=== PATIENT | male | born 1945 | race Caucasian/White ===

== ENCOUNTER → 2019-04-27 07:59 | Outpatient (CLI) | payer MEDICARE, OTHER, SELFPAY ==
[2019-04-27 08:53] LABS: Add Manual Diff / Slide Review NO; Basophils Absolute Auto 0 /uL (0-100); Basophils Percent Auto 0.4 % (0-2); Eosinophils Absolute Auto 500 /uL (0-450); Hematocrit 42.6 % (41-53); Hemoglobin 14.9 g/dL (13.5-17.5); Lymphocytes Absolute Auto 1500 /uL (1100-4500); Lymphocytes Percent Auto 26.2 % (25-40); Mean Corpuscular Hemoglobin 29.6 PG (26-34); Mean Corpuscular Volume 84.7 fL (80-100); Monocytes Absolute Auto 600 /uL (0-900); Neutrophils Absolute Auto 3200 /uL (1500-7000); Neutrophils Percent Auto 55.4 % (50-75); Platelet Count 239 X10^3/uL (150-400); Red Blood Cell Count 5.03 X10^6/uL (4.5-5.9); White Blood Cell Count 5.8 X10^3/uL (4.5-11.0)
[2019-04-27 09:26] LABS: Alanine Aminotransferase 21 IU/L (<50); Albumin 4.2 g/dL (3.5-5.0); Albumin Globulin Ratio 1.6 (1.0-2.8); Alkaline Phosphatase 63 U/L (38-126); Aspartate Aminotransferase 36 IU/L (17-59); BUN Creatinine Ratio 23.6 (6-22); Bilirubin Total 0.7 mg/dL (0.2-1.3); Blood Urea Nitrogen 26 mg/dL (9-20); Calcium 9.9 mg/dL (8.4-10.2); Carbon Dioxide 28 mmol/L (22-32); Chloride 106 mmol/L (98-107); Cholesterol 198 mg/dL (140-199); Estimated Glomerular Filt Rate > 60.0 mL/min (>60); Globulin 2.7 g/dL (1.7-4.1); Glucose 94 mg/dL (80-110); HDL Cholesterol 53 mg/dL (40-60); HEMOLYSIS < 15 (0-50); LDL Cholesterol Calculated 129 mg/dL (<100); Potassium 4.5 mmol/L (3.4-5.1); Sodium 142 mmol/L (137-145); Total Protein 6.9 g/dL (6.3-8.2); Triglycerides 79 mg/dL (35-150)
[2019-04-27 09:42] LABS: Vitamin D 25 Hydroxy (D3) 29.5 ng/mL (30.0-100.0)
[2019-04-27 09:53] LABS: TSH w/ Reflex to FT4 3.92 uIU/mL (0.47-4.68)
[2019-04-27 09:54] LABS: Prostate Specific Antigen 7.64 ng/mL (0.10-4.00)
== END ==
PROVIDERS: PCP Family Medicine; Visit Provider Family Medicine
DX: Z13.220 Encounter for screening for lipoid disorders (principal); E03.9 Hypothyroidism, unspecified; E55.9 Vitamin D deficiency, unspecified; I10 Essential (primary) hypertension; N40.1 Benign prostatic hyperplasia with lower urinary tract symptoms
CPT/HCPCS: 36415; 80053; 80061; 82306; 84153; 84443; 85025

== ENCOUNTER → 2019-10-25 07:07 | Outpatient (CLI) | payer MEDICARE, OTHER, SELFPAY ==
[2019-10-25 08:18] LABS: Add Manual Diff / Slide Review NO; Basophils Absolute Auto 0 /uL (0-100); Basophils Percent Auto 0.6 % (0-2); Eosinophils Absolute Auto 500 /uL (0-450); Eosinophils Percent Auto 8.2 % (2-4); Hematocrit 41.9 % (41-53); Hemoglobin 14.7 g/dL (13.5-17.5); Lymphocytes Absolute Auto 1400 /uL (1100-4500); Lymphocytes Percent Auto 23.3 % (25-40); Mean Corpuscular Hemoglobin 29.5 PG (26-34); Mean Corpuscular Volume 84.3 fL (80-100); Monocytes Absolute Auto 600 /uL (0-900); Monocytes Percent Auto 9.4 % (3-14); Neutrophils Absolute Auto 3500 /uL (1500-7000); Neutrophils Percent Auto 58.5 % (50-75); Platelet Count 218 X10^3/uL (150-400); Red Blood Cell Count 4.98 X10^6/uL (4.5-5.9); Red Cell Distribution Width 13.9 % (11.6-14.8); White Blood Cell Count 6.1 X10^3/uL (4.5-11.0)
[2019-10-25 08:35] LABS: Alanine Aminotransferase 20 IU/L (<50); Albumin 4.3 g/dL (3.5-5.0); Albumin Globulin Ratio 1.3 (1.0-2.8); Alkaline Phosphatase 62 U/L (38-126); Aspartate Aminotransferase 38 IU/L (17-59); BUN Creatinine Ratio 19.8 (6-22); Bilirubin Total 0.6 mg/dL (0.2-1.3); Blood Urea Nitrogen 18 mg/dL (9-20); Calcium 9.5 mg/dL (8.4-10.2); Carbon Dioxide 25 mmol/L (22-32); Chloride 106 mmol/L (98-107); Cholesterol 170 mg/dL (140-199); Estimated Glomerular Filt Rate > 60.0 mL/min (>60); Globulin 3.2 g/dL (1.7-4.1); Glucose 93 mg/dL (80-110); HDL Cholesterol 50 mg/dL (40-60); HEMOLYSIS < 15 (0-50); LDL Cholesterol Calculated 99 mg/dL (<100); Potassium 4.6 mmol/L (3.4-5.1); Sodium 139 mmol/L (137-145); Total Protein 7.5 g/dL (6.3-8.2); Triglycerides 107 mg/dL (35-150)
[2019-10-25 08:45] LABS: Free T3, Triiodothyronine Free 3.57 pg/mL (2.77-5.27); Free T4, Direct Thyroxine 0.88 ng/dL (0.78-2.19)
[2019-10-25 08:46] LABS: Vitamin D 25 Hydroxy (D3) 35.1 ng/mL (30.0-100.0)
[2019-10-25 08:58] LABS: Thyroid Stimulating Hormone 5.17 uIU/mL (0.47-4.68)
[2019-10-25 09:03] LABS: Prostate Specific Antigen 6.07 ng/mL (0.10-4.00)
[2019-10-25 09:21] LABS: Vitamin B12 812 pg/mL (239-931)
== END ==
PROVIDERS: PCP Family Medicine; Referring Provider Family Medicine; Visit Provider Family Medicine
DX: E03.9 Hypothyroidism, unspecified (principal); E55.9 Vitamin D deficiency, unspecified; F32.9 Major depressive disorder, single episode, unspecified; N40.1 Benign prostatic hyperplasia with lower urinary tract symptoms; R03.0 Elevated blood-pressure reading, without diagnosis of hypertension; R41.3 Other amnesia
CPT/HCPCS: 36415; 80053; 80061; 82306; 82607; 84153; 84439; 84443; 84481; 85025

== ENCOUNTER → 2019-11-01 12:50 | Outpatient (CLI) | payer MEDICARE, OTHER, SELFPAY ==
--- NOTE | 2019-11-01 12:52 | DI.CT.S_ITS ---
PROCEDURE: CT HEAD/BRAIN WO CON INDICATIONS: memory loss/transient amnesia TECHNIQUE: Noncontrast 4.5 mm thick angled axial sections acquired from the foramen magnum to the vertex, with coronal and sagittal reformats. For radiation dose reduction, the following was used: automated exposure control, adjustment of mA and/or kV according to patient size. COMPARISON: None. FINDINGS: Image quality: Excellent. CSF spaces: Basal cisterns are patent. No extra-axial fluid collections. The ventricles are symmetric in size and shape. Brain: No intracranial bleeds or masses. There is cerebral volume loss for age, with resultant ventricular and sulcal prominence. There are periventricular and deep white matter chronic small vessel ischemic changes. Skull and face: Calvarium and visualized facial bones appear intact, without suspicious lesions. Sinuses: Visualized sinuses and mastoids are clear. IMPRESSION: No acute intracranial disease process. Dictated by: Codie Pollack MD, PhD on 11/01/2019 at 13:37 Approved by: Codie Pollack MD, PhD on 11/01/2019 at 13:57
== END ==
PROVIDERS: PCP Family Medicine; Referring Provider Family Medicine; Visit Provider Family Medicine
DX: G45.4 Transient global amnesia (principal)
CPT/HCPCS: 70450

== ENCOUNTER → 2020-03-05 15:46 | Outpatient (CLI) | payer MEDICARE, OTHER, SELFPAY ==
[2020-03-06 20:31] LABS: COVID19 Sendout Not Detected (Not Detect)
== END ==
PROVIDERS: PCP Family Medicine; Visit Provider Physician Assistant
DX: Z11.59 Encounter for screening for other viral diseases (principal)
CPT/HCPCS: 87635

== ENCOUNTER → 2020-04-07 06:49 | Outpatient (CLI) | payer MEDICARE, OTHER, SELFPAY ==
[2020-04-10 22:33] LABS: Levetiracetam Keppra 9.6 ug/mL (10.0-40.0)
== END ==
PROVIDERS: PCP Family Medicine; Referring Provider Psychiatry & Neurology Neurology; Visit Provider Psychiatry & Neurology Neurology
DX: Z51.81 Encounter for therapeutic drug level monitoring (principal)
CPT/HCPCS: 36415; 80177

== ENCOUNTER 2020-04-18 14:32 | Emergency (ER) | payer MEDICARE, OTHER, SELFPAY ==
[2020-04-18 14:37] VITALS: BP 135/71; PULSE 65; RESP 16; TEMP 36.8; O2SAT 98; BMI 29.9
[2020-04-18 15:30] LABS: Add Manual Diff / Slide Review NO; Basophils Absolute Auto 0 /uL (0-100); Basophils Percent Auto 0.3 % (0-2); Eosinophils Absolute Auto 400 /uL (0-450); Eosinophils Percent Auto 3.6 % (2-4); Hematocrit 45.8 % (41-53); Hemoglobin 15.6 g/dL (13.5-17.5); INR 0.9 (0.9-1.3); Lymphocytes Absolute Auto 1800 /uL (1100-4500); Lymphocytes Percent Auto 15.1 % (25-40); Mean Corpuscular Volume 85.4 fL (80-100); Monocytes Absolute Auto 1300 /uL (0-900); Monocytes Percent Auto 10.8 % (3-14); Neutrophils Absolute Auto 8300 /uL (1500-7000); Neutrophils Percent Auto 70.2 % (50-75); Platelet Count 237 X10^3/uL (150-400); Prothrombin Time 10.7 SECONDS (10.1-12.7); Red Blood Cell Count 5.36 X10^6/uL (4.5-5.9); Red Cell Distribution Width 13.5 % (11.6-14.8); White Blood Cell Count 11.9 X10^3/uL (4.5-11.0)
[2020-04-18 15:33] LABS: PTT Partial Thromboplastin Tim 28 SECONDS (26.4-36.2)
[2020-04-18 15:35] LABS: Alanine Aminotransferase 18 IU/L (<50); Albumin 4.4 g/dL (3.5-5.0); Albumin Globulin Ratio 1.3 (1.0-2.8); Alkaline Phosphatase 65 U/L (38-126); Aspartate Aminotransferase 29 IU/L (17-59); BUN Creatinine Ratio 18.6 (6-22); Bilirubin Total 0.6 mg/dL (0.2-1.3); Blood Urea Nitrogen 16 mg/dL (9-20); Calcium 9.7 mg/dL (8.4-10.2); Carbon Dioxide 25 mmol/L (22-32); Chloride 106 mmol/L (98-107); Estimated Glomerular Filt Rate > 60.0 mL/min (>60); Globulin 3.5 g/dL (1.7-4.1); Glucose 90 mg/dL (80-110); HEMOLYSIS 17 (0-50); Lipase 114 U/L (23-300); Potassium 4.3 mmol/L (3.4-5.1); Sodium 138 mmol/L (137-145); Total Protein 7.9 g/dL (6.3-8.2)
[2020-04-18 16:55] VITALS: BP 148/71; PULSE 69; RESP 16; O2SAT 96
--- NOTE | 2020-04-18 17:12 | DI.CT.S_ITS ---
PROCEDURE: CT ABDOMEN PELVIS W CON INDICATIONS: LLQ pain TECHNIQUE: After the administration of intravenous contrast, 5 mm thick sections acquired from the diaphragm to the symphysis. 5 mm coronal and sagittal reformats were acquired. For radiation dose reduction, the following was used: automated exposure control, adjustment of mA and/or kV according to patient size. COMPARISON: None. FINDINGS: Image quality: Excellent. ABDOMEN: Lung bases: Mild left base atelectatic change.. Heart size is normal. Very small hiatal hernia. Solid organs: Liver is normal in size and enhancement. A 1.7 cm hypervascular lesion is present in segment of the liver demonstrating indistinct margins. No other discrete liver lesions. Gallbladder is normal . Biliary system is non dilated. Pancreas enhances normally. Spleen is normal in size and enhancement. No adrenal nodules. Kidneys demonstrate normal size and enhancement, without hydronephrosis. Peritoneum and bowel: Numerous diverticula throughout the transverse, descending, and sigmoid colon. There are acute pericolonic inflammatory changes at the distal descending and proximal sigmoid colon in the left lower quadrant. No evidence of extraluminal gas. There is thickening of the lateral conal fascia and trace fluid. No drainable abscess. This segment of colon also demonstrates extensive circumferential wall thickening. The other bowel loops demonstrate normal wall thickness and caliber. Nodes and vessels: No retroperitoneal or mesenteric adenopathy by size criteria. Aorta and inferior vena cava are normal in size. Miscellaneous: No ventral hernias. PELVIS: Genitourinary: The urinary bladder wall is diffusely thickened. The prostate gland is moderately enlarged. A penile prosthesis is present. The preperitoneal bladder portion has decompressed.. Miscellaneous: No inguinal hernias or adenopathy. Bones: No suspicious bony lesions. Right hip arthroplasty changes are present. No vertebral body compression fractures. IMPRESSION: 1. Acute uncomplicated distal descending sigmoid diverticulitis. 2. There is focal wall thickening in this segment of colon. Differential diagnosis includes perforated neoplasm and colonoscopy following resolution of acute inflammation is recommended if not recently performed. 3. Left lower lung atelectatic changes, likely secondary to splinting. 4. 1.7 cm hypervascular liver lesion most likely flash fill hemangioma. Further evaluation with CT or MRI of the liver is recommended. 5. Diffusely thickened urinary bladder wall likely from chronic outlet obstruction due to prostatomegaly. Cystitis could also be present. Correlate with UA. Dictated by: Shayy Yin M.D. on 04/18/2020 at 17:45 Approved by: Shayy Yin M.D. on 04/18/2020 at 17:54
[2020-04-18 17:20] LABS: Bacteria Urine None Seen
[2020-04-18 17:38] LABS: Culture Indicated Urine Cult Not Indicated; RBC Urine 0-1/HPF (0-5/HPF); Squamous Epithelial Cell Urine 0-1 /HPF (0-5/HPF); WBC Urine 0-1/HPF (0-5/HPF)
[2020-04-18 18:00] VITALS: BP 160/71; PULSE 68; RESP 18; O2SAT 96
[2020-04-18] MEDS: AMOXICILLIN/CLAV 875/125 MG 1 TAB PO (18:40)
[2020-04-18] MEDS: SODIUM CHLORIDE 0.9% 1,000 ML 1000 ML IV (18:41)
[2020-04-18] MEDS: ONDANSETRON 4 MG/2 ML INJ IV (18:41)
--- NOTE | 2020-04-18 19:32 | ED.ABDPAIN ---
HPI - Abdominal Pain <JACKI Munoz - Last Filed: 04/18/20 19:39> General Chief Complaint: Abdominal Pain Stated Complaint: severe pain in left abdomen Time Seen by Provider: 04/18/20 16:47 Source: patient and family Mode of arrival: Wheelchair Limitations: no limitations History of Present Illness HPI narrative: the patient is a 74-year-old male nonsmoker with history of BPH and obstructive sleep apnea who presents with a chief complaint of left lower quadrant pain. He states that he ate well last night at [employer], then noticed that he had left lower quadrant pain Late last night or this morning. He denies any fevers muscle aches or chills. Denies any nausea or vomiting. Has not taken anything for the pain and declines anything for pain during my evaluation. He states he has had multiple soft bowel movements Today. Denies any abdominal surgical history history of diverticulitis or other GI history. the patient denies any dysuria urgency or frequency. He denies any history of kidney stones. He states it is right in his left lower quadrant does not radiate anywhere. Described as 01/13. Related Data Home Medications Medication Instructions Recorded Confirmed diphenhydramine 25 1 tab PO BEDTIME PRN 04/26/19 03/05/20 mg-acetaminophen 500 mg tablet ibuprofen 200 mg capsule 200 mg PO Q6H PRN 04/26/19 03/05/20 cholecalciferol (vitamin D3) PO 05/10/19 03/05/20 Previous Rx's Medication Instructions Recorded amoxicillin-pot clavulanate 1 tab PO Q8HR 7 Days #21 tab 04/18/20 [Augmentin] hydrocodone-acetaminophen [Paisley] 1 tab PO Q4-6H PRN #10 tab 04/18/20 ondansetron 4 mg PO Q6H PRN #20 tab 04/18/20 Allergies Allergy/AdvReac Type Severity Reaction Status Date / Time lactose [LACTOSE] Allergy Unknown Verified 04/18/20 14:39 Review of Systems <JACKI Munoz - Last Filed: 04/18/20 19:39> Review of Systems Narrative: GENERAL: Denies chills, fatigue, malaise, fever, sweats. HEENT: Denies sinus pain, ear pain, sore throat, difficulty swallowing, dizziness. RESPIRATORY: Denies dyspnea, cough, wheezing, hemoptysis, sputum. CARDIOVASCULAR: Denies chest pain, palpitations, orthopnea, edema, GASTROINTESTINAL: See HPI : Denies dysuria, frequency, incontinence, hematuria, urinary retention. MUSCULOSKELETAL: denies weakness, joint pain, or bony pain SKIN: Denies rash, skin lesions, or other NEUROLOGIC: Denies weakness, headache, numbness, change in speech, confusion, seizures, incoordination. PSYCHIATRIC: No concerning psychosocial issues. 12 point review of systems is negative except for those stated above Patient History <JACKI Munoz - Last Filed: 04/18/20 19:39> Medical History Carpal tunnel syndrome (Chronic) Dehydration (Acute) Diarrhea (Acute) Elevated TSH (Acute) Fever (Acute) Memory change (Acute) Vision disorder (Chronic) Surgical History Anesthesia (Resolved) History of right hip replacement (Resolved ~2013) History of shoulder surgery (Resolved ~2016) History of surgery (Resolved ~1999) Family History Unknown Unknown family medical history Unobtainable family history due to adoption Social History Smoking Status: Never smoker Smoking Status: Never smoker alcohol intake frequency: other Substance Use Type: does not use Exam <JACKI Munoz - Last Filed: 04/18/20 19:39> Narrative Exam Narrative: GENERAL: This is a well-nourished, well-developed patient, in no acute distress HEAD: Atraumatic. Normocephalic. No temporal or scalp tenderness. EYES: Pupils equal round and reactive. Extraocular motions intact. No scleral icterus. No injection or drainage. ENT: Nose without bleeding, purulent drainage or septal hematoma. Throat without erythema, tonsillar hypertrophy or exudate. Uvula midline. Airway patent. NECK: Trachea midline. No JVD or lymphadenopathy. Supple, nontender, no meningeal signs. CARDIOVASCULAR: Regular rate and rhythm RESPIRATORY: Clear to auscultation. Breath sounds equal bilaterally. No wheezes, rales, or rhonchi. no cough. No increased respiratory effort. No accessory muscle use. GASTROINTESTINAL: Abdomen soft, Active bowel sounds all 4 quadrants, nondistended. No hepato-splenomegaly, or palpable masses. left lower quadrant pain to palpation with guarding noted. No pain right lower quadrant or McBurney's point. EXTREMITIES: No clubbing, cyanosis, or edema. No joint tenderness, effusion, or edema noted. BACK: Nontender without deformity or crepitance. No flank tenderness. NEURO: AOx3. SKIN: No rash or erythema On visible skin Initial Vital Signs Initial Vital Signs: Vital Signs Temperature 98.3 F 04/18/20 14:37 Pulse Rate 65 04/18/20 14:37 Respiratory Rate 16 04/18/20 14:37 Blood Pressure 135/71 04/18/20 14:37 Pulse Oximetry 98 04/18/20 14:37 <Juany Aquino DO - Last Filed: 04/19/20 08:26> Initial Vital Signs Initial Vital Signs: Vital Signs Temperature 98.3 F 04/18/20 14:37 Pulse Rate 65 04/18/20 14:37 Respiratory Rate 16 04/18/20 14:37 Blood Pressure 135/71 04/18/20 14:37 Pulse Oximetry 98 04/18/20 14:37 Scores <JACKI Munoz - Last Filed: 04/18/20 19:39> GCS [place] coma scale eye opening: Spontaneous Steve coma scale verbal response: Orientated Steve coma scale motor response: Obey commands [place] coma scale total score: 15 Course <JACKI Munoz - Last Filed: 04/18/20 19:39> Orders Ordered: Discontinued Medications Amoxicillin/Clavulanate Potassium (Augmentin 875-125 Mg) 1 tab PO NOW ONE Stop: 04/18/20 18:32 Last Admin: 04/18/20 18:40 Dose: 1 tab Documented by: JOSUEINOR Sodium Chloride (Normal Saline 0.9%) 1,000 mls @ 1,000 mls/hr IV BOLUS ONE Stop: 04/18/20 19:30 Last Infusion: 04/18/20 19:32 Dose: 0 mls/hr Documented by: Admin: 04/18/20 18:41 Dose: 1,000 mls/hr Documented by: MMINOR Ondansetron HCl (Zofran) 4 mg IV NOW ONE Stop: 04/18/20 18:32 Last Admin: 04/18/20 18:41 Dose: 4 mg Documented by: MMINOR Vital Signs Vital signs: Vital Signs - 8 hr 04/18/20 14:37 04/18/20 16:55 04/18/20 18:00 Temperature 98.3 F Pulse Rate 65 69 68 Respiratory Rate 16 16 18 Blood Pressure 135/71 148/71 H 160/71 H Pulse Oximetry 98 96 96 <Juany Aquino DO - Last Filed: 04/19/20 08:26> Orders Ordered: Discontinued Medications Amoxicillin/Clavulanate Potassium (Augmentin 875-125 Mg) 1 tab PO NOW ONE Stop: 04/18/20 18:32 Last Admin: 04/18/20 18:40 Dose: 1 tab Documented by: GAUDENCIO Sodium Chloride (Normal Saline 0.9%) 1,000 mls @ 1,000 mls/hr IV BOLUS ONE Stop: 04/18/20 19:30 Last Infusion: 04/18/20 19:32 Dose: 0 mls/hr Documented by: Admin: 04/18/20 18:41 Dose: 1,000 mls/hr Documented by: GAUDENCIO Ondansetron HCl (Zofran) 4 mg IV NOW ONE Stop: 04/18/20 18:32 Last Admin: 04/18/20 18:41 Dose: 4 mg Documented by: MMINOR Vital Signs Vital signs: Vital Signs - 8 hr 04/18/20 14:37 04/18/20 16:55 04/18/20 18:00 Temperature 98.3 F Pulse Rate 65 69 68 Respiratory Rate 16 16 18 Blood Pressure 135/71 148/71 H 160/71 H Pulse Oximetry 98 96 96 MDM - Abdominal Pain <JACKI Munoz - Last Filed: 04/18/20 19:39> Differential Diagnosis Differential diagnosis: Likely abdominal pain, acute appendicitis, calculus of kidney, constipation and diverticulitis Lab Data Attestation: I reviewed the patient's lab results. Result diagrams: 04/18/20 14:55 04/18/20 14:55 Labs: Lab Results 04/18/20 04/18/20 04/18/20 Range/Units 14:55 14:55 14:55 WBC 11.9 H (4.5-11.0) X10^3/uL RBC 5.36 (4.5-5.9) X10^6/uL Hgb 15.6 (13.5-17.5) g/dL Hct 45.8 (41-53) % MCV 85.4 (80-100) fL MCH 29.0 (26-34) PG MCHC 34.0 (30-36) % RDW 13.5 (11.6-14.8) % Plt Count 237 (150-400) X10^3/uL Neut % (Auto) 70.2 (50-75) % Lymph % (Auto) 15.1 L (25-40) % [place] % (Auto) 10.8 (3-14) % Eos % (Auto) 3.6 (2-4) % Baso % (Auto) 0.3 (0-2) % Neut # (Auto) 8300 H (5795-4787) /uL Lymph # (Auto) 1800 (5188-8012) /uL [place] # (Auto) 1300 H (0-900) /uL Eos # (Auto) 400 (0-450) /uL Baso # (Auto) 0 (0-100) /uL PT 10.7 (10.1-12.7) SECONDS INR 0.9 (0.9-1.3) APTT 28 (26.4-36.2) SECONDS Sodium 138 (137-145) mmol/L Potassium 4.3 (3.4-5.1) mmol/L Chloride 106 (98-107) mmol/L Carbon Dioxide 25 (22-32) mmol/L BUN 16 (9-20) mg/dL Creatinine 0.86 (0.66-1.25) mg/dL Estimated GFR > 60.0 (>60) mL/min BUN/Creatinine Ratio 18.6 (6-22) Glucose 90 (80-110) mg/dL Calcium 9.7 (8.4-10.2) mg/dL Total Bilirubin 0.6 (0.2-1.3) mg/dL AST 29 (17-59) IU/L ALT 18 (<50) IU/L Alkaline Phosphatase 65 (38-126) U/L Total Protein 7.9 (6.3-8.2) g/dL Albumin 4.4 (3.5-5.0) g/dL Globulin 3.5 (1.7-4.1) g/dL Albumin/Globulin Ratio 1.3 (1.0-2.8) Lipase 114 (23-300) U/L Urine RBC (0-5/HPF) Urine WBC (0-5/HPF) Ur Squamous Epith Cells (0-5/HPF) Urine Bacteria (None) Ur Culture Indicated? 04/18/20 Range/Units 17:04 WBC (4.5-11.0) X10^3/uL RBC (4.5-5.9) X10^6/uL Hgb (13.5-17.5) g/dL Hct (41-53) % MCV (80-100) fL MCH (26-34) PG MCHC (30-36) % RDW (11.6-14.8) % Plt Count (150-400) X10^3/uL Neut % (Auto) (50-75) % Lymph % (Auto) (25-40) % [place] % (Auto) (3-14) % Eos % (Auto) (2-4) % Baso % (Auto) (0-2) % Neut # (Auto) (1931-0217) /uL Lymph # (Auto) (2493-5187) /uL [place] # (Auto) (0-900) /uL Eos # (Auto) (0-450) /uL Baso # (Auto) (0-100) /uL PT (10.1-12.7) SECONDS INR (0.9-1.3) APTT (26.4-36.2) SECONDS Sodium (137-145) mmol/L Potassium (3.4-5.1) mmol/L Chloride (98-107) mmol/L Carbon Dioxide (22-32) mmol/L BUN (9-20) mg/dL Creatinine (0.66-1.25) mg/dL Estimated GFR (>60) mL/min BUN/Creatinine Ratio (6-22) Glucose (80-110) mg/dL Calcium (8.4-10.2) mg/dL Total Bilirubin (0.2-1.3) mg/dL AST (17-59) IU/L ALT (<50) IU/L Alkaline Phosphatase (38-126) U/L Total Protein (6.3-8.2) g/dL Albumin (3.5-5.0) g/dL Globulin (1.7-4.1) g/dL Albumin/Globulin Ratio (1.0-2.8) Lipase (23-300) U/L Urine RBC 0-1/hpf (0-5/HPF) Urine WBC 0-1/hpf (0-5/HPF) Ur Squamous Epith Cells 0-1 /hpf (0-5/HPF) Urine Bacteria None seen (None) Ur Culture Indicated? Cult not indicated Point of care testing: Urine Dip Bedside Urine Glucose Negative Bedside Urine Bilirubin - Negative Bedside Urine Ketone - Negative Urine Specific [place] 1.025 Bedside Urine Occult Blood ++ Bedside Urine pH 6.0 Bedside Urine Protein - Negative Bedside Urine Urobilinogen - Negative Bedside Urine Nitrite - Negative Bedside Urine Leukocytes - Negative Esterase Imaging Data CT scan - abdomen/pelvis: Radiologist's Impression: [address] [place] [id number] Scan Report Signed Patient: Carlos Garza MMR#: [id number] : 4Acct:[id number] Age/Sex: 74 / MDate of Service: 04/18/20 Loc: ED Accession Number: [id number] Procedure: CT abdomen pelvis w con Ordering Provider: Lelia Valero ACQUISITIONS ANALYST- PROCEDURE: CT ABDOMEN PELVIS W CON INDICATIONS: LLQ pain TECHNIQUE: After the administration of intravenous contrast, 5 mm thick sections acquired from the diaphragm to the symphysis. 5 mm coronal and sagittal reformats were acquired. For radiation dose reduction, the following was used: automated exposure control, adjustment of mA and/or kV according to patient size. COMPARISON: None. FINDINGS: Image quality: Excellent. ABDOMEN: Lung bases: Mild left base atelectatic change.. Heart size is normal. Very small hiatal hernia. Solid organs: Liver is normal in size and enhancement. A 1.7 cm hypervascular lesion is present in segment of the liver demonstrating indistinct margins. No other discrete liver lesions. Gallbladder is normal . Biliary system is non dilated. Pancreas enhances normally. Spleen is normal in size and enhancement. No adrenal nodules. Kidneys demonstrate normal size and enhancement, without hydronephrosis. Peritoneum and bowel: Numerous diverticula throughout the transverse, descending, and sigmoid colon. There are acute pericolonic inflammatory changes at the distal descending and proximal sigmoid colon in the left lower quadrant. No evidence of extraluminal gas. There is thickening of the lateral conal fascia and trace fluid. No drainable abscess. This segment of colon also demonstrates extensive circumferential wall thickening. The other bowel loops demonstrate normal wall thickness and caliber. Nodes and vessels: No retroperitoneal or mesenteric adenopathy by size criteria. Aorta and inferior vena cava are normal in size. Miscellaneous: No ventral hernias. PELVIS: Genitourinary: The urinary bladder wall is diffusely thickened. The prostate gland is moderately enlarged. A penile prosthesis is present. The preperitoneal bladder portion has decompressed.. Miscellaneous: No inguinal hernias or adenopathy. Bones: No suspicious bony lesions. Right hip arthroplasty changes are present. No vertebral body compression fractures. IMPRESSION: 1. Acute uncomplicated distal descending sigmoid diverticulitis. 2. There is focal wall thickening in this segment of colon. Differential diagnosis includes perforated neoplasm and colonoscopy following resolution of acute inflammation is recommended if not recently performed. 3. Left lower lung atelectatic changes, likely secondary to splinting. 4. 1.7 cm hypervascular liver lesion most likely flash fill hemangioma. Further evaluation with CT or MRI of the liver is recommended. 5. Diffusely thickened urinary bladder wall likely from chronic outlet obstruction due to prostatomegaly. Cystitis could also be present. Correlate with UA. Dictated by: Shayy Yin M.D. on 04/18/2020 at 17:45 Approved by: Shayy Yin M.D. on 04/18/2020 at 17:54 [facility] Narrative Medical decision making narrative: The patient is a 74-year-old male who presents with a chief complaint of left lower quadrant pain to palpation. He has slight leukocytosis on his lab work, but otherwise is afebrile and hemodynamically stable. Does have significant pain to palpation left lower quadrant, so CT was obtained and showed diverticulitis. I discussed that radiology recommends colonoscopy after resolution of diverticulitis to make sure there is no underlying neoplasm. Also discussed hemangioma of liver encouraged follow-up. Discussed with patient and his treatment for diverticulitis to include metronidazole with a fluoroquinolone, but they would like to avoid fluoroquinolones due to black box warning of tendon damage. Thus we elected to use Augmentin 875/125 t.i.d. as per up-to-date recommendations. The patient declined pain medication in the emergency department, though he was willing to take a small prescription to ensure that he can sleep. He was also given Zofran and fluids in the emergency department. I encouraged him to his primary care provider in the next few days, and discussed at length coming back to the ER for any acute concerns such as inability keep down fluids or medications. The patient is able to tolerate p.o. fluids and I encouraged a clear liquid diet was slowly advanced. Patient and have no questions or concerns upon discharge and state understanding of return precautions as well as follow-up care. <Juany Aquino, DO - Last Filed: 04/19/20 08:26> Lab Data Labs: Lab Results 04/18/20 04/18/20 04/18/20 Range/Units 14:55 14:55 14:55 WBC 11.9 H (4.5-11.0) X10^3/uL RBC 5.36 (4.5-5.9) X10^6/uL Hgb 15.6 (13.5-17.5) g/dL Hct 45.8 (41-53) % MCV 85.4 (80-100) fL MCH 29.0 (26-34) PG MCHC 34.0 (30-36) % RDW 13.5 (11.6-14.8) % Plt Count 237 (150-400) X10^3/uL Neut % (Auto) 70.2 (50-75) % Lymph % (Auto) 15.1 L (25-40) % [place] % (Auto) 10.8 (3-14) % Eos % (Auto) 3.6 (2-4) % Baso % (Auto) 0.3 (0-2) % Neut # (Auto) 8300 H (3101-5721) /uL Lymph # (Auto) 1800 (8254-5509) /uL [place] # (Auto) 1300 H (0-900) /uL Eos # (Auto) 400 (0-450) /uL Baso # (Auto) 0 (0-100) /uL PT 10.7 (10.1-12.7) SECONDS INR 0.9 (0.9-1.3) APTT 28 (26.4-36.2) SECONDS Sodium 138 (137-145) mmol/L Potassium 4.3 (3.4-5.1) mmol/L Chloride 106 (98-107) mmol/L Carbon Dioxide 25 (22-32) mmol/L BUN 16 (9-20) mg/dL Creatinine 0.86 (0.66-1.25) mg/dL Estimated GFR > 60.0 (>60) mL/min BUN/Creatinine Ratio 18.6 (6-22) Glucose 90 (80-110) mg/dL Calcium 9.7 (8.4-10.2) mg/dL Total Bilirubin 0.6 (0.2-1.3) mg/dL AST 29 (17-59) IU/L ALT 18 (<50) IU/L Alkaline Phosphatase 65 (38-126) U/L Total Protein 7.9 (6.3-8.2) g/dL Albumin 4.4 (3.5-5.0) g/dL Globulin 3.5 (1.7-4.1) g/dL Albumin/Globulin Ratio 1.3 (1.0-2.8) Lipase 114 (23-300) U/L Urine RBC (0-5/HPF) Urine WBC (0-5/HPF) Ur Squamous Epith Cells (0-5/HPF) Urine Bacteria (None) Ur Culture Indicated? 04/18/20 Range/Units 17:04 WBC (4.5-11.0) X10^3/uL RBC (4.5-5.9) X10^6/uL Hgb (13.5-17.5) g/dL Hct (41-53) % MCV (80-100) fL MCH (26-34) PG MCHC (30-36) % RDW (11.6-14.8) % Plt Count (150-400) X10^3/uL Neut % (Auto) (50-75) % Lymph % (Auto) (25-40) % [place] % (Auto) (3-14) % Eos % (Auto) (2-4) % Baso % (Auto) (0-2) % Neut # (Auto) (9412-3078) /uL Lymph # (Auto) (5716-5349) /uL [place] # (Auto) (0-900) /uL Eos # (Auto) (0-450) /uL Baso # (Auto) (0-100) /uL PT (10.1-12.7) SECONDS INR (0.9-1.3) APTT (26.4-36.2) SECONDS Sodium (137-145) mmol/L Potassium (3.4-5.1) mmol/L Chloride (98-107) mmol/L Carbon Dioxide (22-32) mmol/L BUN (9-20) mg/dL Creatinine (0.66-1.25) mg/dL Estimated GFR (>60) mL/min BUN/Creatinine Ratio (6-22) Glucose (80-110) mg/dL Calcium (8.4-10.2) mg/dL Total Bilirubin (0.2-1.3) mg/dL AST (17-59) IU/L ALT (<50) IU/L Alkaline Phosphatase (38-126) U/L Total Protein (6.3-8.2) g/dL Albumin (3.5-5.0) g/dL Globulin (1.7-4.1) g/dL Albumin/Globulin Ratio (1.0-2.8) Lipase (23-300) U/L Urine RBC 0-1/hpf (0-5/HPF) Urine WBC 0-1/hpf (0-5/HPF) Ur Squamous Epith Cells 0-1 /hpf (0-5/HPF) Urine Bacteria None seen (None) Ur Culture Indicated? Cult not indicated Point of care testing: Urine Dip Bedside Urine Glucose Negative Bedside Urine Bilirubin - Negative Bedside Urine Ketone - Negative Urine Specific [place] 1.025 Bedside Urine Occult Blood ++ Bedside Urine pH 6.0 Bedside Urine Protein - Negative Bedside Urine Urobilinogen - Negative Bedside Urine Nitrite - Negative Bedside Urine Leukocytes - Negative Esterase Discharge Plan Departure Patient Disposition: Home Clinical Impression: Diverticulitis Discharge Date/Time: 04/18/20 19:35 Instructions: DI for Diverticulitis Activity Restrictions/Additional Instructions: thank you for trusting us with your care today. As discussed, your CT and exam are concerning for diverticulitis. I have placed you on antibiotics for this. I suggest taking with probiotic /yogurt to help prevent antibiotic associated diarrhea. I also sent in prescriptions for pain and nausea medicine. please remember to start with clear liquid diet and slowly advance. please follow-up with primary care provider the next few days. As discussed, there are also incidental findings on your CT scan, which require follow-up with primary care provider. Please come back to emergency department for any acute concerns such as those we discussed including inability keep down fluids or your medications, acute concerns etcetera I have given you a prescription of a narcotic for pain. Be aware that this can be constipating and sedating. I encouraged taking with a stool softener, pushing fluids and fiber. Do not take and drive, operate heavy machinery, etc. Do not combine it with any other sedating substances such as alcohol. Prescriptions: New hydrocodone-acetaminophen [Paisley] 5-325 mg tablet 1 tab PO Q4-6H PRN (Reason: pain) Qty: 10 RF: 0 ondansetron 4 mg tablet,disintegrating 4 mg PO Q6H PRN (Reason: nausea and vomiting) Qty: 20 RF: 0 amoxicillin-pot clavulanate [Augmentin] 875-125 mg tablet 1 tab PO Q8HR 7 Days Qty: 21 RF: 0 No Action diphenhydramine-acetaminophen [Tylenol PM Extra Strength] 25-500 mg tablet 1 tab PO BEDTIME PRNRF: 0 ibuprofen 200 mg capsule 200 mg PO Q6H PRNRF: 0 cholecalciferol (vitamin D3) PO RF: 0 Referrals: Aroldo Barraza DO [Primary Care Provider] - <Juany Aquino DO - Last Filed: 04/19/20 08:26> [facility] Attestation: I was immediately available in the department for consultation. Documentation has been reviewed. I agree with assessment and plan.
== END 2020-04-18 19:35 | disposition home or self-care (01) ==
PROVIDERS: Emergency Medicine; Emergency Provider Nurse Practitioner Family; PCP Family Medicine
DX: K57.92 Diverticulitis of intestine, part unspecified, without perforation or abscess without bleeding (principal)
CPT/HCPCS: 36415; 74177; 80053; 81003; 81015; 83690; 85025; 85610; 85730; 96361; 96374; 99284; J2405; Q9967

== ENCOUNTER → 2020-04-21 15:06 | Outpatient (CLI) | payer MEDICARE, OTHER, SELFPAY ==
[2020-04-21 16:31] LABS: Alanine Aminotransferase 15 IU/L (<50); Albumin 4.3 g/dL (3.5-5.0); Albumin Globulin Ratio 1.4 (1.0-2.8); Alkaline Phosphatase 75 U/L (38-126); Aspartate Aminotransferase 29 IU/L (17-59); BUN Creatinine Ratio 19.4 (6-22); Bilirubin Total 0.7 mg/dL (0.2-1.3); Blood Urea Nitrogen 18 mg/dL (9-20); Calcium 9.8 mg/dL (8.4-10.2); Carbon Dioxide 31 mmol/L (22-32); Chloride 99 mmol/L (98-107); Estimated Glomerular Filt Rate > 60.0 mL/min (>60); Glucose 79 mg/dL (80-110); HEMOLYSIS < 15 (0-50); Potassium 4.7 mmol/L (3.4-5.1); Sodium 136 mmol/L (137-145); Total Protein 7.3 g/dL (6.3-8.2)
[2020-04-21 17:02] LABS: Prostate Specific Antigen Scrn 9.73 ng/mL (0.1-4.0)
== END ==
PROVIDERS: PCP Family Medicine; Referring Provider Family Medicine; Visit Provider Family Medicine
DX: N40.1 Benign prostatic hyperplasia with lower urinary tract symptoms (principal); R16.0 Hepatomegaly, not elsewhere classified
CPT/HCPCS: 36415; 80053; 84153; G0103

== ENCOUNTER → 2020-04-25 09:47 | Outpatient (CLI) | payer MEDICARE, OTHER, SELFPAY ==
--- NOTE | 2020-04-25 10:08 | DI.CT.S_ITS ---
PROCEDURE: CT ABDOMEN WO/W CON INDICATIONS: liver nodule TECHNIQUE: 4 phase scanning was performed. Non-contrast 5 mm axial sections acquired from the diaphragm to the iliac crests. Following the administration of intravenous contrast, 5 mm thick arterial-phase, portal venous-phase, and 5-minute delayed phase images were acquired through the liver. 5 mm thick coronal and sagittal reformats were performed. For radiation dose reduction, the following was used: automated exposure control, adjustment of mA and/or kV according to patient size. COMPARISON: [facility], CT, CT ABDOMEN PELVIS W CON, 04/18/2020, 17:16. FINDINGS: Image quality: Excellent. Lung bases: Lung bases are clear. Heart size is normal. Liver: The precontrast liver imaging is normal, and the arterial phase imaging shows no lesion in the area of prior concern, right posterior hepatic segment. The mixed venous phase of contrast enhancement shows moderate density of portal contrast enhancement, allowing visualization of a portal vein radical emanating from the right portal vein (series 5, image 21) and curving posterolaterally to the area of focal contrast enhancement seen 04/18/20 within the right posterior hepatic segment. At this point there is a curvilinear transition to a right posterior hepatic vein peripherally with shunt flow extending cephalad to the right hepatic vein intersection with the intrahepatic IVC. Other solid organs: Gallbladder appears normal. Biliary system is non dilated. Pancreas is normal in morphology. Spleen is normal in size and enhancement. No adrenal nodules. Both kidneys demonstrate normal size and enhancement, without hydronephrosis or nephrolithiasis. Nodes and vessels: No retroperitoneal or mesenteric adenopathy by size criteria. Aorta and inferior vena cava are normal in size. Bowel and peritoneum: Unenhanced bowel loops are normal in caliber. No free fluid or air. Bones: No suspicious bony lesions. No vertebral body compression fractures. Miscellaneous: No ventral hernias. IMPRESSION: No hepatic mass lesion is present. 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 No follow-up recommended. The study is normal elsewhere-a small portion of the descending colon that was previously documented to be involved by diverticulitis on the prior examination shows resolution of the inflammatory process.. Dictated by: Perry Slaughter M.D. on 04/25/2020 at 11:22 Approved by: Perry Slaughter M.D. on 04/25/2020 at 11:30
== END ==
PROVIDERS: PCP Family Medicine; Referring Provider Family Medicine; Visit Provider Family Medicine
DX: R16.0 Hepatomegaly, not elsewhere classified (principal)
CPT/HCPCS: 74170; Q9967

== ENCOUNTER → 2020-05-07 07:10 | Outpatient (CLI) | payer MEDICARE, OTHER, SELFPAY ==
[2020-05-09 22:36] LABS: Levetiracetam Keppra 22.1 ug/mL (10.0-40.0)
== END ==
PROVIDERS: PCP Family Medicine; Referring Provider Psychiatry & Neurology Neurology; Visit Provider Psychiatry & Neurology Neurology
DX: G40.009 Localization-related (focal) (partial) idiopathic epilepsy and epileptic syndromes with seizures of localized onset, not intractable, without status epilepticus (principal)
CPT/HCPCS: 36415; 80177

== ENCOUNTER → 2020-06-26 15:58 | Outpatient (CLI) | payer MEDICARE, OTHER, SELFPAY ==
[2020-06-26 17:15] LABS: Prostate Specific Antigen 11.9 ng/mL (0.10-4.00)
== END ==
PROVIDERS: PCP Family Medicine; Referring Provider Urology; Visit Provider Urology
DX: R97.20 Elevated prostate specific antigen [PSA] (principal)
CPT/HCPCS: 36415; 84153

== ENCOUNTER 2023-06-09 09:58 | Emergency (ER) | payer MEDICARE, OTHER, SELFPAY ==
[2023-06-09 10:01] VITALS: BP 125/58; PULSE 50; RESP 14; TEMP 36.1; O2SAT 97; BMI 28.8
--- NOTE | 2023-06-09 10:57 | PC.NURSE ---
Pt denies injury. Pt denies loss bowel/bladder. Pt states that he was on the couch yesterday and when he got up he developed back pain.
--- NOTE | 2023-06-09 11:05 | ED_ITS ---
HPI - Back Pain/Injury General Chief Complaint: Back Pain/Injury Stated Complaint: back pain Time Seen by Provider: 06/09/23 10:49 Source: family Mode of arrival: Ambulatory History of Present Illness HPI Narrative: Patient is a 78-year-old male who is here for evaluation of left lower back discomfort. He states that yesterday he was at his normal state of health. He was lying on the couch with his grandson. He states he got up off the couch and very shortly afterwards had a sudden left lower back discomfort. It has been persistent since then. He is tried aspirin at home without improvement. No urinary symptoms. No change in bowel habits. No fevers. The pain is worse with palpation and movement. It does not radiate down to his leg. Related Data Home Medications Medication Instructions Recorded Confirmed diphenhydramine 25 1 tab PO BEDTIME PRN 04/26/19 07/09/20 mg-acetaminophen 500 mg tablet (Tylenol PM Extra Strength) ibuprofen 200 mg capsule 200 mg PO Q6H PRN 04/26/19 07/09/20 cholecalciferol (vitamin D3) PO 05/10/19 07/09/20 levetiracetam 500 mg tablet 500 mg PO BID 07/09/20 07/09/20 (Keppra) Previous Rx's Medication Instructions Recorded ondansetron 4 mg disintegrating 4 mg PO Q6H PRN nausea and 04/18/20 tablet vomiting #20 tabs cyclobenzaprine 10 mg tablet 10 mg PO TID PRN muscle spasm #21 06/09/23 tabs hydrocodone 10 mg-acetaminophen 1 tab PO Q6-8H PRN pain #20 tabs 06/09/23 325 mg tablet Allergies Allergy/AdvReac Type Severity Reaction Status Date / Time lactose [LACTOSE] Allergy Unknown Verified 06/09/23 10:01 Review of Systems Constitutional Constitutional: Reports system reviewed and no additional complaints, except as documented Gastrointestinal Gastrointestinal: Reports system reviewed and no additional complaints, except as documented Genitourinary Genitourinary: Reports system reviewed and no additional complaints, except as documented Musculoskeletal Musculoskeletal: Reports system reviewed and no additional complaints, except as documented Integumentary/Breasts Skin/Breast: Reports system reviewed and no additional complaints, except as documented Patient History Medical History Upper extremity somatic dysfunction Left forearm pain Fever Diarrhea Elevated TSH Dehydration Memory change Vision disorder Carpal tunnel syndrome Surgical History Anesthesia History of shoulder surgery (~2016) History of right hip replacement (~2013) History of surgery (~1999) Family History Unknown Unknown family medical history Unobtainable family history due to adoption Social History Smoking Status: Never smoker Smoking Status: Never smoker alcohol intake frequency: other Substance Use Type: does not use Exam Initial Vital Signs Initial Vital Signs: Vital Signs Temperature 97.0 F L 06/09/23 10:01 Pulse Rate 50 L 06/09/23 10:01 Respiratory Rate 14 06/09/23 10:01 Blood Pressure 125/58 L 06/09/23 10:01 Pulse Oximetry 97 06/09/23 10:01 Oxygen Delivery Method Room Air 06/09/23 10:01 Const General: cooperative and healthy appearing [facility] Head: normal to inspection and normocephalic Back/Spine/Pelvis Thoracic/Lumbar Spine: pain with thoraco-lumbar ROM, paraspinal tenderness (Left-sided), No thoracic spinal tenderness and No lumbar spinal tenderness Sacrum: no tenderness Skin Other: No skin changes concerning for zoster Neuro General: patient alert, patient awake and patient oriented x3 Extrem General: normal to inspection and capillary refill normal Course Orders Ordered: Discontinued Medications Hydromorphone HCl (Hydromorphone 1 Mg Inj) 1 mg IM NOW ONE Stop: 06/09/23 11:06 Ketorolac Tromethamine (Ketorolac 30 Mg/Ml Vial) 30 mg IM NOW ONE Stop: 06/09/23 11:06 Vital Signs Vital signs: Vital Signs - 8 hr 06/09/23 10:01 Temperature 97.0 F L Pulse Rate 50 L Respiratory Rate 14 Blood Pressure 125/58 L Pulse Oximetry 97 Oxygen Delivery Method Room Air MDM - Back Pain/Injury MDM Narrative Medical decision making narrative: No CVA tenderness. No skin changes. Has fairly localized left-sided paraspinal lumbar tenderness. Has fullness in this area. He did not fall. Low suspicion for fracture. Not on anticoagulation. No history of cancer. No fevers. No indication for radiologic studies. Symptoms fit muscular etiology. Will treat with anti-inflammatories muscle relaxers and pain medication. He was given return precautions. He expressed understanding and agreement. Discharge Plan Departure Patient Disposition: Home Clinical Impression: Low back pain Instructions: DI for Low Back Pain Activity Restrictions/Additional Instructions: It is important that you try to stay as active as possible. Recommend that you continue with conservative measures such as heat/ice and also light stretching and anti-inflammatories. Use the pain medication and muscle relaxers as needed. Remember these medications can make you drowsy. Return to the emergency department for new symptoms. Prescriptions: New cyclobenzaprine 10 mg tablet 10 mg PO TID PRN (Reason: muscle spasm) Qty: 21 0RF hydrocodone-acetaminophen 10-325 mg tablet 1 tab PO Q6-8H PRN (Reason: pain) Qty: 20 0RF No Action levetiracetam [Keppra] 500 mg tablet 500 mg PO BID diphenhydramine-acetaminophen [Tylenol PM Extra Strength] 25-500 mg tablet 1 tab PO BEDTIME PRN ibuprofen 200 mg capsule 200 mg PO Q6H PRN cholecalciferol (vitamin D3) PO ondansetron 4 mg tablet,disintegrating 4 mg PO Q6H PRN (Reason: nausea and vomiting) Qty: 20 0RF Referrals: Lawrence Barraza DO [Primary Care Provider] - Stand Alone Forms: Patient Portal/API
[2023-06-09] MEDS: HYDROMORPHONE 1 MG INJ IM (11:14)
[2023-06-09] MEDS: KETOROLAC 30 MG/ML VIAL IM (11:14)
[2023-06-09 11:37] VITALS: BP 129/69; PULSE 42; RESP 19; O2SAT 94
== END 2023-06-09 11:37 | disposition home or self-care (01) ==
PROVIDERS: Emergency Provider Emergency Medicine; PCP Family Medicine
DX: M54.50 Low back pain, unspecified (principal)
CPT/HCPCS: 96372; 99283; J1170; J1885